=== PATIENT | female | born 1985 | race Caucasian/White ===

== ENCOUNTER 2020-07-04 06:04 | Inpatient (IN) | payer BC ==
[2020-07-04 06:41] VITALS: BMI 29.9
[2020-07-04] MEDS: ELECTROLYTE-148 SOLN 1,000 ML IV SCH (07:00)
[2020-07-04] MEDS ORDERED: CITRIC ACID/SODIUM CITRATE 30 ML UNIT-DOSE CUP PO ONE (07:43)
--- NOTE | 2020-07-04 07:49 | HP ---
Past Medical History - Primary Care Physician PCP:: Jaswinder Chilel - Admission Chief Complaint: 39 weeks, previous c/s for repeat c/s History of Present Illness: 34 yo f with 2 previous c/s 39 weeks for repeat c/s, risks discussed with patient History Source: Patient Limitations to Obtaining History: No Limitations - Past Medical History ...: 3 ...Para: 2 ...Term: 2 ...: 0 ...Spon : 0 ...Induced : 0 ...Living Children: 2 ...Multiple Gestation: 0 ...LMP: 10/04/19 ... Weeks Gestation by Dates: 39.1 ...EDC by Dates: 07/10/20 Heme/Onc: Yes: Anemia - Past Surgical History Past Surgical History: Yes: Hx Myomectomy: No Hx Transabdominal Cerclage: No - Smoking History Smoking history: Never smoked Have you smoked in the past 12 months: No - Alcohol/Substance Use Hx Alcohol Use: No - Social History Usual Living Arrangement: Yes: With Spouse History of Recent Travel: No Home Medications - Allergies Allergies/Adverse Reactions: Allergies Allergy/AdvReac Type Severity Reaction Status Date / Time No Known Allergies Allergy Verified 11/14/13 17:57 - Home Medications Home Medications: Ambulatory Orders Mv-Mn/Iron/FA/Herbal/Digestive [ One Tablet] 1 each PO DAILY 07/11/16 Acyclovir 1 gm TP QID #15 gm 07/14/16 Oxycodone HCl/Acetaminophen [Percocet 5-325 mg Tablet -] 1 - 2 tab PO Q6H #30 tab MDD 6 07/14/16 Valacyclovir HCl [Valtrex -] 500 mg PO BID #6 tablet 07/14/16 Review of Systems - Review of Systems Constitutional: reports: No Symptoms Eyes: reports: No Symptoms HENT: reports: No Symptoms Neck: reports: No Symptoms Cardiovascular: reports: No Symptoms Respiratory: reports: No Symptoms Gastrointestinal: reports: No Symptoms Genitourinary: reports: No Symptoms Breasts: reports: No Symptoms Reported Musculoskeletal: reports: No Symptoms Integumentary: reports: No Symptoms Neurological: reports: No Symptoms Endocrine: reports: No Symptoms Hematology/Lymphatic: reports: No Symptoms Psychiatric: reports: No Symptoms Physical Exam - Maternity Constitutional: Yes: Well Nourished, No Distress, Calm Eyes: Yes: WNL, Conjunctiva Clear, EOM Intact HENT: Yes: WNL, Atraumatic, Normocephalic Neck: Yes: WNL, Supple, Trachea Midline Cardiovascular: Yes: WNL, Regular Rate and Rhythm Breast(s): Yes: WNL - Abdominal Exam/OB Fundal Height: 38 Number of Fetuses: Single Presentation: Vertex Contractions: No Intensity: Unaware Monitor Mode: External Heart Rate Location: [facility] Category: I Accelerations: Non-Uniform Decelerations: None - Vaginal Exam/OB Vaginal Bleeding: No Speculum Exam: No Dilatation (cm): 0 Effacement (%): 0 Amniotic Membrane Status: Intact Nitrazine Test: Negative Presentation: Vertex/Position Station: -3 - Physical Exam Musculoskeletal: Yes: WNL Extremities: Yes: WNL Edema: LLE: Trace, RLE: Trace Integumentary: Yes: WNL Deep Tendon Reflex Grade: Normal +2 Psychiatric: Yes: WNL Hemorrhage Risk Assessment - Risk Factors Medium Risk Factors: Yes: Prior , uterine surgery,or multiple lap arotomies Risk Score: 1 Risk Level: Medium Risk Problem List - Problems (1) with 39 completed weeks gestation Code(s): Z3A.39 - 39 WEEKS GESTATION OF (2) Previous section complicating Code(s): O34.219 - MATERNAL CARE FOR UNSP TYPE SCAR FROM PREVIOUS DEL Assessment/Plan admit for repeat c/s, risks and benefit has discussed with patient
[2020-07-04] MEDS ORDERED: morphine SULFATE/PF 0.5 MG/ML (2cc Syringe - QUVA) ONE (08:35)
[2020-07-04] MEDS ORDERED: PROPOFOL 20 ML ONE (08:36)
[2020-07-04] MEDS ORDERED: SUCCINYLCHOLINE CHLORIDE 200 MG/10 ML SYRINGE ONE (08:36)
[2020-07-04] MEDS ORDERED: ePHEDrine SULFATE 50 MG/1 ML AMPULE ONE (08:58)
[2020-07-04] MEDS ORDERED: ceFAZolin SODIUM 1 GM VIAL ONE (09:14)
[2020-07-04] MEDS ORDERED: OXYTOCIN 10 UNITS/ML VIAL ONE (09:14)
[2020-07-04] MEDS ORDERED: OXYTOCIN 20 UNITS in 0.9% NS 20 UNIT/1,000 ML INFUS.BAG IV ONE (09:37)
[2020-07-04] MEDS ORDERED: morphine SULFATE/PF 0.5 MG/ML (2cc Syringe - QUVA) EP ONE (10:17)
[2020-07-04] MEDS ORDERED: ONDANSETRON 4 MG/2 ML VIAL IVPUSH PRN (10:17)
[2020-07-04] MEDS ORDERED: IBUPROFEN 800 MG/8 ML IJ IVPB ONE (10:45)
[2020-07-04] MEDS: IBUPROFEN 800 MG/8 ML IJ IVPB PRN ×3 (10:55→22:35)
[2020-07-04 11:17] LABS: CORD BASE EXCESS -6.3 mmol/L (0-2); CORD HCO3 20.2 mmHg (20-29); CORD PCO2 43.3 mmHg (30-78); CORD pH 7.286 (7.14-7.44)
[2020-07-04 11:25] LABS: CORD HCO3 20.9 mmHg (20-29); CORD PCO2 66.1 mmHg (30-78); CORD pH 7.118 (7.14-7.44)
[2020-07-04] MEDS ORDERED: oxyCODONE HCL 5 MG TABLET PO PRN (12:18)
[2020-07-04] MEDS ORDERED: BENZOCAINE 20% 57 GM BOTTLE TP PRN (12:18)
[2020-07-04] MEDS ORDERED: diphenhydrAMINE HCL 25 MG CAPSULE (FP) PO PRN (12:18)
[2020-07-04] MEDS ORDERED: BENZOCAINE 28 GM HEMORRHOIDAL OINTMENT PR PRN (12:18)
[2020-07-04] MEDS ORDERED: METHYLERGONOVINE MALEATE 0.2 MG/1 ML AMP IM PRN (12:18)
[2020-07-04] MEDS ORDERED: WITCH HAZEL 50% (TUCKS) 40 PAD/JAR PAD TP PRN (12:18)
--- NOTE | 2020-07-04 12:20 | OP ---
Operative Note - Note: Operative Date: 07/04/20 Pre-Operative Diagnosis: 2 previous c/s, 39 weeks Operation: repeat LST c/s Findings: live baby boy, 9/9 . LOT, clear fluid. LT side 6 cm myoma Surgeon: Jaswinder Chilel Car Conditioner: Trever Justin Anesthesia: Spinal Specimens Removed: placenta Estimated Blood Loss (mls): 500 Drains & Tubes with Location: grimes Blood Volume Replaced (mls): 0 Operative Report Dictated: Yes
[2020-07-04] MEDS ORDERED: OXYTOCIN 20 UNITS in 0.9% NS 20 UNIT/1,000 ML INFUS.BAG IV SCH (12:30)
[2020-07-04] MEDS: DEXTROSE 5%-LACTATED RINGERS 1,000 ML IV SCH (12:31)
[2020-07-04] MEDS: CEFAZOLIN 1 GM/D5W 1 GM/50 ML BAG IVPB SCH (17:42)
[2020-07-05] MEDS: CEFAZOLIN 1 GM/D5W 1 GM/50 ML BAG IVPB SCH (01:55)
[2020-07-05] MEDS: SIMETHICONE 80 MG TAB.CHEW (FP) PO PRN ×5 (05:30→22:35)
[2020-07-05] MEDS: ACETAMINOPHEN 325 MG TABLET (FP) PO PRN ×5 (05:30→22:33)
[2020-07-05] MEDS: IBUPROFEN 600 MG TABLET (FP) PO PRN ×3 (05:31→13:54)
--- NOTE | 2020-07-05 08:35 | PN ---
Progress Note (short form) - Note Progress Note: Anesthesia postop note 34 y/o F s/p spinal/duramorph for repeat c/s POD#1, vss, aaox3, pain well controlled, sensory motor intact distally No anesthesia complications.
[2020-07-05 08:48] LABS: BASO % 0.2 % (0-2.0); EOS % 0.4 % (0-4.5); HEMATOCRIT 29.7 % (32.4-45.2); HEMOGLOBIN 9.7 GM/dL (10.7-15.3); LYMPH % 9.4 % (8-40); MCH 25.9 pg (25.7-33.7); MCHC 32.7 g/dl (32.0-36.0); MEAN CELL VOLUME 79.3 fl (80-96); MEAN PLT VOLUME 8.8 fl (7.5-11.1); MONO % 7.4 % (3.8-10.2); NEUT % 82.6 % (42.8-82.8); PLATELET COUNT 166 K/MM3 (134-434); RBC 3.75 M/mm3 (3.60-5.2); RDW 15.5 % (11.6-15.6); WHITE BLOOD COUNT 10.2 K/mm3 (4.0-10.0)
[2020-07-05] MEDS: ENOXAPARIN NA (PORCINE) 40 MG/0.4 ML DISP.SYRIN SQ SCH (09:58)
[2020-07-05] MEDS ORDERED: BISACODYL 10 MG SUPP.RECT PR PRN (12:18)
--- NOTE | 2020-07-05 13:10 | PN ---
Progress Note (short form) - Note Progress Note: pod1 doing well, has mild incision pain , no dizziness, no active vaginal bleeding CBC, BMP 07/05/20 07:30 Last Vital Signs Temp Pulse Resp BP Pulse Ox 98.1 F 78 20 123/76 98 07/05/20 09:00 07/05/20 09:00 07/05/20 09:00 07/05/20 09:00 07/04/20 12:09 abdomen soft, no distension, no cva incison dry, clean no calf tenderness plan ambulate , advance diet pain management iron saray DVT prophylaxis Problem List - Problems (1) with 39 completed weeks gestation Code(s): Z3A.39 - 39 WEEKS GESTATION OF (2) Previous section complicating Code(s): O34.219 - MATERNAL CARE FOR UNSP TYPE SCAR FROM PREVIOUS DEL
--- NOTE | 2020-07-05 16:22 | OP ---
DATE OF OPERATION: 07/04/2020 PREOPERATIVE DIAGNOSIS: 39 weeks, previous section and requests a repeat section. POSTOPERATIVE DIAGNOSIS: 39 weeks, previous section and requests a repeat section. PROCEDURE: Repeat low segment transverse section. SURGEON: Jaswinder Chilel MD MILKING MACHINE TECHNICIAN: SOPHIA Hawthorne ANESTHESIA: Spinal. ANESTHESIOLOGIST: Lavonne Tanner MD ESTIMATED BLOOD LOSS: 500 mL FINDINGS: A live baby boy, 9, 9. OPERATIVE REPORT: Patient was taken to the operating room. Under adequate spinal anesthesia abdomen and perineum were prepped and draped. Pfannenstiel abdominal skin incision was made. The abdominal wall was cut layer by layer until peritoneum was exposed and incised. Upon entering the abdominal cavity lower uterine segment was identified and uterovesical fold of peritoneum established. Bladder was pushed down. A low transverse uterine incision was made. The incision was extended laterally with bandage scissors. Amniotic sac was entered. Clear fluid. Head delivered. Nasopharynx was suctioned. Live baby boy was delivered, 9 and 9. Placenta was delivered manually. Uterine cavity was cleaned of all remaining tissue. Uterine incision was closed in 2 layers, first layer with 0 Biosyn continuous suture, the second layer with 0 Biosyn imbricating the first layer. Bladder flap was closed with 0 Biosyn continuous suture. Both tubes and ovaries were checked and were normal. No active bleeding was seen. All the lap pads, sponge and instrument counts were correct. Peritoneum was closed with 0 Biosyn continuous suture. Muscles were brought together with interrupted suture of 0 Biosyn. Fascia was closed with 0 Biosyn continuous suture, subcutaneous fat interrupted suture of 0 Biosyn, and the skin was closed with 3-0 Vicryl subcuticular continuous suture. Patient tolerated procedure well, left the OR in good condition. Man [id number]
[2020-07-05] MEDS: oxyCODONE HCL 5 MG TABLET PO PRN (22:34)
[2020-07-05] MEDS: DEXTROSE 5%-LACTATED RINGERS 1,000 ML IV SCH (23:56)
[2020-07-06] MEDS: ELECTROLYTE-148 SOLN 1,000 ML IV SCH (02:40)
[2020-07-06] MEDS: ACETAMINOPHEN 325 MG TABLET (FP) PO PRN ×2 (02:41→08:12)
[2020-07-06] MEDS: oxyCODONE HCL 5 MG TABLET PO PRN ×2 (02:42→08:11)
[2020-07-06] MEDS: SIMETHICONE 80 MG TAB.CHEW (FP) PO PRN ×2 (02:43→08:17)
[2020-07-06] MEDS ORDERED: LEVOTHYROXINE NA 75 MCG TABLET (FP) PO SCH (07:00)
--- NOTE | 2020-07-06 07:18 | DS ---
Physical Exam-RN PEDIATRIC ICU Vital Signs: Vital Signs Temperature 97.5 F L 07/05/20 22:00 Pulse Rate 82 07/05/20 22:00 Respiratory Rate 18 07/05/20 22:00 Blood Pressure 123/78 07/05/20 22:00 O2 Sat by Pulse Oximetry (%) 99 07/05/20 22:00 Constitutional: Yes: Well Nourished, No Distress, Calm Eyes: Yes: WNL, Conjunctiva Clear, EOM Intact HENT: Yes: WNL, Atraumatic, Normocephalic Neck: Yes: WNL, Supple, Trachea Midline Cardiovascular: Yes: WNL, Regular Rate and Rhythm Respiratory: Yes: WNL, Regular, CTA Bilaterally Gastrointestinal: Yes: WNL ...Rectal Exam: Yes: WNL Renal/: Yes: WNL ....Post : Yes: Uterus firm, Uterus non-tender, Slight lochia rubra Breast(s): Yes: WNL Musculoskeletal: Yes: WNL Extremities: Yes: WNL Edema: No Integumentary: Yes: WNL Wound/Incision: Yes: Clean/Dry, Well Approximated, Sutures Intact Neurological: Yes: WNL, Alert, Oriented ...Motor Strength: WNL Psychiatric: Yes: WNL, Alert, Oriented Labs: CBC, BMP 07/05/20 07:30 Delivery - Delivery Section: Repeat, Low Flap Transverse Type of Anesthesia: Spinal EBL (cc): 500 Delivery, Single - Stages of Labor Date of Delivery: 07/04/20 Time of Delivery: 09:05 Time Placenta Delivered: 09:06 Placenta: Yes: Expressed - Condition of Infant Rug Dry Room Attendant/Double Needle Stitcher Present: Yes Name: Marine Mcpherson Infant Gender: Male Weight: 7 lb 4 oz Position: Left, OT Total Hours ROM (Hrs/Mins): 0Hrs/2MIns - 1 Minute Total Score: 8 5 Minutes Total Score: 9 - Feeding Plan Initial Plan: Elected not to breastfeed exclusively throughout hospitalization Discharge Summary Problems reviewed: Yes Reason For Visit: SCHEDULED Current Active Problems with 39 completed weeks gestation (Acute) Previous section complicating (Acute) Procedures: Principal: repeat LST c/s Hospital Course: no complication Plan of Treatment: follow up office 1 week Condition: Good - Instructions Diet, Activity, Other Instructions: regular diet, no intercourse , follow up office 1 week, if fever, pain, heavy vaginal bleeding call MD Referrals: Jaswinder Chilel MD [Staff Physician] - Disposition: HOME - Home Medications Comprehensive Discharge Medication List: Ambulatory Orders Mv-Mn/Iron/FA/Herbal/Digestive [ One Tablet] 1 each PO DAILY 07/11/16 Acyclovir 1 gm TP QID #15 gm 07/14/16 Oxycodone HCl/Acetaminophen [Percocet 5-325 mg Tablet -] 1 - 2 tab PO Q6H #30 tab MDD 6 07/14/16 Valacyclovir HCl [Valtrex -] 500 mg PO BID #6 tablet 07/14/16 Ibuprofen [Motrin -] 600 mg PO QID #28 tablet 07/05/20 Valacyclovir HCl [Valtrex -] 500 mg PO BID #30 tablet 07/06/20
[2020-07-06 09:39] VITALS: BP 124/81; PULSE 85; TEMP 98.2
[2020-07-06] MEDS: ENOXAPARIN NA (PORCINE) 40 MG/0.4 ML DISP.SYRIN SQ SCH (10:12)
[2020-07-06] MEDS ORDERED: SENNOSIDES/DOCUSATE COMBO (SENNA PLUS) TABLET (UD) PO PRN (22:00)
--- NOTE | 2020-07-09 16:48 | PATH ---
Surgical Pathology Report Patient Name: VANGIE ZAMORA Med. Rec. #: [id number] /Age/Gender: 1985 (Age: 34) / F Account: [id number] Location: [facility]BS/[employer] Taken: 07/04/2020 Received: 07/04/2020 Reported: 07/09/2020 Physicians: Jaswinder Chilel M.D. Specimen(s) Received PLACENTA Clinical History , 39.1 weeks Final Diagnosis PLACENTA, SECTION: 595 G THIRD TRIMESTER PLACENTA WITH TRIVASCULAR UMBILICAL CORD AND UNREMARKABLE PLACENTAL MEMBRANES. Electronically Signed Patricia Martinez M.D. Gross Description The specimen is received fresh labeled placenta and is a 595 gram, 17 x 15 x 1.2 cm. placenta with attached membranes and umbilical cord. The attached membranes are clear, translucent, and insert marginally. The umbilical cord measures 16 cm. in length and averages 1.2 cm. in diameter. The cord inserts eccentrically, 4 cm. to the nearest margin. No true knots or strictures are identified. Cut surface of the umbilical cord reveals 3 vessels. The surface is haider-blue with minimal fibrin deposition and appropriate caliber vessels. The maternal surface is red-brown with focal defects. Sectioning reveals red-brown, spongy parenchyma. No lesions are identified. Supplier Engineer sections are submitted in three cassettes as follows: 1- membrane rolls and umbilical cord; 2-3- full thickness sections of placenta. MLSZ/07/06/2020 sanml/07/06/2020
== END 2020-07-06 13:30 | disposition home or self-care (01) | DRG 788 ==
LOC: JLDR 06:04 → J3W 11:51
PROVIDERS: ADMIT Obstetrics & Gynecology; ATTEND Obstetrics & Gynecology
PROC: 10D00Z1 Extraction of Products of Conception, Low, Open Approach (ICD-10-PCS; principal; 2020-07-04)
DX: O34.219 Maternal care for unspecified type scar from previous cesarean delivery (principal); Z3A.39 39 weeks gestation of pregnancy; Z37.0 Single live birth; O99.02 Anemia complicating childbirth; D64.9 Anemia, unspecified; O34.13 Maternal care for benign tumor of corpus uteri, third trimester; D25.9 Leiomyoma of uterus, unspecified
CPT/HCPCS: 36415; 36600; 82803; 85025; 87389; 88307-TC

== ENCOUNTER 2020-08-15 09:46 | Emergency (ER) | payer BC | END 2020-08-15 10:34 | disposition home or self-care (01) | LOC: JVIRT 09:46 | DX: Z03.818 Encounter for observation for suspected exposure to other biological agents ruled out (principal) | CPT/HCPCS: C9803; Q3014-GT; U0003 ==

== ENCOUNTER 2024-04-05 08:05 | Inpatient (IN) | payer BC ==
[2024-04-05] MEDS: NIFEdipine 10 MG CAPSULE (FP) PO ONE (09:15)
[2024-04-05] MEDS ORDERED: NIFEdipine 10 MG CAPSULE (FP) ONE (09:18)
[2024-04-05] MEDS: ELECTROLYTE-148 SOLN 1,000 ML IV SCH (09:33)
[2024-04-05 09:52] VITALS: BMI 31.2
[2024-04-05 10:37] LABS: RETICULOCYTES 2.07 % (0.5-1.5)
[2024-04-05] MEDS: CITRIC ACID/SODIUM CITRATE 30 ML UNIT-DOSE CUP PO ONE (10:51)
[2024-04-05 11:00] LABS: URIC ACID 5.3 mg/dL (2.6-7.2)
[2024-04-05] MEDS ORDERED: ONDANSETRON 4 MG/2 ML VIAL IVPUSH PRN (11:06)
[2024-04-05] MEDS ORDERED: ACETAMINOPHEN 325 MG TABLET (FP) PO PRN (11:06)
[2024-04-05] MEDS ORDERED: IBUPROFEN 600 MG TABLET (FP) PO PRN ×2 (11:06→14:40)
[2024-04-05] MEDS ORDERED: morphine SULFATE/PF 1 MG/2 ML (2cc Syringe - QUVA) ONE (12:55)
[2024-04-05] MEDS ORDERED: PHENYLEPHRINE HCL 10 MG/1 ML SINGLE DOSE VIAL ONE (12:59)
[2024-04-05] MEDS ORDERED: SODIUM CHLORIDE 0.9% P/F 10 ML VIAL IJ ONE (12:59)
[2024-04-05] MEDS: morphine SULFATE/PF 1 MG/2 ML (2cc Syringe - QUVA) EP ONE (13:00)
[2024-04-05] MEDS ORDERED: LIGASURE IMPACT TP ONE (13:06)
[2024-04-05] MEDS ORDERED: ONDANSETRON 4 MG/2 ML VIAL ONE (13:13)
[2024-04-05] MEDS ORDERED: METOCLOPRAMIDE HCL INJECTION 10 MG/2 ML VIAL ONE (13:13)
[2024-04-05] MEDS ORDERED: OXYTOCIN 10 UNITS/ML VIAL ONE ×2 (13:21→13:22)
[2024-04-05] MEDS ORDERED: MIDAZOLAM HCL 2 MG/2 ML SINGLE DOSE VIAL ONE (13:32)
[2024-04-05] MEDS ORDERED: KETOROLAC TROMETHAMINE 30 MG/1 ML VIAL ONE ×2 (13:48→14:33)
[2024-04-05 14:28] LABS: CORD HCO3 21.2 mmHg (20-29); CORD PCO2 66.7 mmHg (30-78)
[2024-04-05 14:30] LABS: CORD BASE EXCESS -8.1 mmol/L (0-2); CORD HCO3 19.8 mmHg (20-29); CORD PCO2 49.6 mmHg (30-78); CORD pH 7.218 (7.14-7.44)
[2024-04-05] MEDS ORDERED: FENTANYL CITRATE/PF 50 MCG/ML VIAL ONE (14:31)
[2024-04-05] MEDS ORDERED: ONDANSETRON 4 MG/2 ML VIAL IVPB PRN (14:40)
[2024-04-05] MEDS ORDERED: OXYTOCIN 20 UNITS in 0.9% NS 20 UNIT/1,000 ML INFUS.BAG IV ONE (14:44)
[2024-04-05] MEDS: OXYTOCIN 20 UNITS in 0.9% NS 20 UNIT/1,000 ML INFUS.BAG IV SCH (15:01)
[2024-04-05 17:05] LABS: HIV INTERPRETATION NEGATIVE (NEGATIVE)
[2024-04-05] MEDS: ACETAMINOPHEN 1000 MG/100 ML BAG IVPB SCH (18:01)
[2024-04-05] MEDS: ENOXAPARIN NA (PORCINE) 40 MG/0.4 ML DISP.SYRIN SQ SCH (18:01)
[2024-04-05] MEDS: CEFAZOLIN SODIUM 2 GM in DEXTROSE 5%-WATER 100 ML IVPB SCH (18:02)
[2024-04-05] MEDS: IBUPROFEN 800 MG/8 ML IJ IVPB PRN (19:42)
[2024-04-05] MEDS: SENNOSIDES/DOCUSATE COMBO (SENNA PLUS) TABLET (UD) PO SCH (22:00)
[2024-04-06 08:58] LABS: BASO % 0.3 % (0-2.0); EOS % 0.4 % (0-4.5); HEMATOCRIT 33.7 % (32.4-45.2); HEMOGLOBIN 11.5 GM/dL (10.7-15.3); LYMPH % 10.8 % (8-40); MCH 30.3 pg (25.7-33.7); MEAN CELL VOLUME 89.1 fl (80-96); MEAN PLT VOLUME 9.3 fl (7.5-11.1); MONO % 7.2 % (3.8-10.2); NEUT % 81.3 % (42.8-82.8); PLATELET COUNT 115 10^3/uL (134-434); RBC 3.79 M/mm3 (3.60-5.2); RDW 15.6 % (11.6-15.6); WHITE BLOOD COUNT 8.9 K/mm3 (4.0-10.0)
[2024-04-06] MEDS ORDERED: BISACODYL 10 MG SUPP.RECT RC PRN (14:40)
[2024-04-06] MEDS: IBUPROFEN 600 MG TABLET (FP) PO PRN (17:08)
[2024-04-06] MEDS: SIMETHICONE 80 MG TAB.CHEW (FP) PO PRN (19:54)
[2024-04-06] MEDS: ACETAMINOPHEN 325 MG TABLET (FP) PO PRN (19:55)
[2024-04-07 08:42] LABS: HEMATOCRIT 33.6 % (32.4-45.2); HEMOGLOBIN 11.4 GM/dL (10.7-15.3); MCH 30.1 pg (25.7-33.7); MCHC 33.9 g/dl (32.0-36.0); MEAN CELL VOLUME 88.9 fl (80-96); MEAN PLT VOLUME 8.7 fl (7.5-11.1); PLATELET COUNT 173 10^3/uL (134-434); RBC 3.78 M/mm3 (3.60-5.2); RDW 15.6 % (11.6-15.6); WHITE BLOOD COUNT 9.4 K/mm3 (4.0-10.0)
[2024-04-07] MEDS: oxyCODONE HCL 5 MG TABLET PO PRN (09:08)
[2024-04-08 11:45] VITALS: BP 121/73; PULSE 77; RESP 16; TEMP 98.3
== END 2024-04-08 17:40 | disposition home or self-care (01) | DRG 785 ==
LOC: JDEL 08:05 → JLDR 08:52 → J3W 17:28
PROVIDERS: ADMIT Obstetrics & Gynecology; ATTEND Obstetrics & Gynecology
PROC: 10D00Z1 Extraction of Products of Conception, Low, Open Approach (ICD-10-PCS; principal; 2024-04-05)
PROC: 0UB70ZZ Excision of Bilateral Fallopian Tubes, Open Approach (ICD-10-PCS; 2024-04-05)
DX: O34.219 Maternal care for unspecified type scar from previous cesarean delivery (principal); O99.284 Endocrine, nutritional and metabolic diseases complicating childbirth; E03.8 Other specified hypothyroidism; O13.4 Gestational [pregnancy-induced] hypertension without significant proteinuria, complicating childbirth; Z3A.38 38 weeks gestation of pregnancy; Z37.0 Single live birth; Z30.2 Encounter for sterilization
CPT/HCPCS: 36415; 36600; 59409; 82570; 82803; 82977; 83010; 84156; 84450; 84460; 84550; 85025; 85027; 85032; 85045; 86803; 87389; 88302-TC; 88307-TC; 94010; J0131